=== PATIENT | female | born 1955 | race Caucasian/White ===

== ENCOUNTER 2021-08-04 11:43 | Emergency (ER) | payer OTHER ==
[~2021-08-04] VITALS: Ht 162.6 cm; Wt 79.8 kg
[2021-08-04] MEDS ORDERED: ELMIRON 100 MG100 M1 PO (12:28)
[2021-08-04] MEDS ORDERED: METFORMIN HCL500 M3 PO (12:28)
[2021-08-04] MEDS ORDERED: ALLOPURINOL 10100 M1 PO (12:28)
[2021-08-04] MEDS ORDERED: HYDROCHLOROTHIA25 M1 PO (12:28)
[2021-08-04] MEDS ORDERED: OMEPRAZOLE40 MG PO (12:29)
[2021-08-04] MEDS ORDERED: AMITRIPTYLINE H10 M1 PO (12:29)
[2021-08-04] MEDS ORDERED: LIPITOR 20 MG T20 M1 PO (12:29)
[2021-08-04] MEDS ORDERED: SINGULAIR 10 MG10 M1 PO (12:29)
[2021-08-04 15:04] LABS: URINE BILIRUBIN NEGATIVE (Negative); URINE BLOOD TRACE (Negative); URINE CLARITY CLEAR; URINE COLOR YELLOW; URINE GLUCOSE-RANDOM NEGATIVE (Negative); URINE KETONES TRACE (Negative); URINE LEUKOCYTES NEGATIVE (Negative); URINE NITRITE NEGATIVE (Negative); URINE PROTEIN NEGATIVE (Negative)
[2021-08-04 15:19] LABS: HEMATOCRIT 37.3 % (37.0-47.0); HEMOGLOBIN 12.4 gm/dL (12.0-15.0); MCH 27.6 pg (26.0-34.0); MCHC 33.2 g/dL (28.0-37.0); MCV 82.9 fL (80.0-100.0); MPV 7.8 fl. (7.2-11.1); NUCLEATED RBCS 0 /100WBC; PLATELET COUNT* 222 thou/uL (150-400); RBC 4.49 mil/uL (4.20-5.00); RDW-CV 17.3 % (10.5-14.5); WBC 8.5 thou/uL (4.0-11.0)
[2021-08-04 15:28] LABS: CALCIUM 9.3 mg/dL (8.5-10.1); CREATININE 1.2 mg/dL (0.6-1.3); POTASSIUM 3.7 mmol/L (3.5-5.1)
[2021-08-04 15:32] LABS: ALBUMIN 3.5 g/dL (3.4-5.0); TOTAL BILIRUBIN 1.5 mg/dL (<0.1-1.0); TOTAL PROTEIN 7.1 g/dL (6.4-8.2)
[2021-08-04 15:52] LABS: ABSOLUTE LYMPHOCYTES 0.4 thou/uL (0.8-5.3); ABSOLUTE MONOCYTES 0.3 thou/uL (0.0-1.2); ABSOLUTE NEUTROPHILS 7.7 thou/uL (1.6-8.1); ANISOCYTOSIS Occasional; PLATELET ESTIMATE ADEQUATE
[2021-08-04 15:53] LABS: POLYCHROMASIA Occasional
[2021-08-04 17:01] VITALS: BP 119/75
== END 2021-08-04 17:02 | disposition home or self-care (01) ==
LOC: M.ERS 11:43
PROVIDERS: Physician Assistant
DX: R33.9 Retention of urine, unspecified (principal); E11.9 Type 2 diabetes mellitus without complications; E78.5 Hyperlipidemia, unspecified; J45.909 Unspecified asthma, uncomplicated; Z90.710 Acquired absence of both cervix and uterus; Z79.899 Other long term (current) drug therapy; Z88.1 Allergy status to other antibiotic agents